=== PATIENT | female | born 1975 | race Caucasian/White ===

== ENCOUNTER 2023-02-15 09:01 | Day surgery (SDC) | payer BC ==
[2023-02-15] MEDS ORDERED: Decadron 4 MG INJ IV ONE (09:02)
[2023-02-15] MEDS ORDERED: XYLOCAINE 1% HCL 20 ML MDV IJ ONE (09:02)
[2023-02-15 09:40] LABS: HCG URINE TEST NEGATIVE (NEGATIVE)
[2023-02-15] MEDS ORDERED: Versed 2 MG/2 ML Injection ONE (10:11)
[2023-02-15] MEDS ORDERED: DIPRIVAN 200 MG/20 ML IV ONE (10:55)
[2023-02-15] MEDS ORDERED: Lactated Ringers 1,000 ML IV ONE (11:07)
--- NOTE | 2023-02-15 11:28 | XRAY ---
Indication: Right piriformis injection. Intraoperative fluoroscopy provided for 9 seconds. Single digital spot image submitted for interpretation demonstrates posterior needle tip projecting over the expected right piriformis. Small amount of contrast injected for needle tip placement. Correlate with intraoperative findings/report.
--- NOTE | 2023-02-15 13:36 | XRAY ---
9 seconds of fluoroscopy was used in surgery for a right piriformis injection.
== END 2023-02-15 11:23 | disposition home or self-care (01) ==
LOC: SDC-PAIN 09:01
PROVIDERS: ATTEND Psychiatry & Neurology Pain Medicine
DX: M79.18 Myalgia, other site (principal); Z79.899 Other long term (current) drug therapy
CPT/HCPCS: 20553; 72170; 77002; 81025; J1100; J2250; J2704; Q9966

== ENCOUNTER 2023-04-05 10:23 | Day surgery (SDC) | payer BC ==
[2023-04-05] MEDS ORDERED: LIDOCAINE HCL 1% 50 MG/5 ML VL PF IJ ONE (10:24)
[2023-04-05] MEDS ORDERED: Decadron 4 MG INJ IV ONE (10:24)
[2023-04-05 10:59] LABS: HCG URINE TEST NEGATIVE (NEGATIVE)
[2023-04-05] MEDS ORDERED: Versed 2 MG/2 ML Injection ONE ×2 (11:25→12:32)
[2023-04-05] MEDS ORDERED: DIPRIVAN 200 MG/20 ML IV ONE ×2 (11:36→12:32)
[2023-04-05] MEDS ORDERED: Lactated Ringers 1,000 ML IV ONE (13:19)
--- NOTE | 2023-04-05 14:37 | XRAY ---
14 seconds of fluoroscopy was used in surgery for a right piriformis injection.
--- NOTE | 2023-04-05 14:37 | XRAY ---
Indication: Right piriformis injection. Intraoperative fluoroscopy provided for 14 seconds. Single digital spot image submitted for interpretation demonstrates posterior needle tip projecting over the expected right piriformis. Small amount of contrast injected for needle tip placement. Correlate with intraoperative findings/report.
== END 2023-04-05 13:02 | disposition home or self-care (01) ==
LOC: SDC-PAIN 10:23
PROVIDERS: ATTEND Psychiatry & Neurology Pain Medicine
DX: M79.18 Myalgia, other site (principal); Z79.899 Other long term (current) drug therapy
CPT/HCPCS: 20553; 72170; 77002; 81025; J1100; J2001; J2250; J2704; Q9966

== ENCOUNTER 2023-09-27 09:46 | Day surgery (SDC) | payer BC ==
[2023-09-27] MEDS ORDERED: LIDOCAINE HCL 1% 50 MG/5 ML VL PF IJ ONE (09:47)
[2023-09-27] MEDS ORDERED: Sodium Chloride 0.9(Preservative Free) 10 ML IJ ONE (09:47)
[2023-09-27] MEDS ORDERED: Depo-Medrol 40 MG/ML IM ONE (09:47)
[2023-09-27 11:22] LABS: HCG URINE TEST NEGATIVE (NEGATIVE)
[2023-09-27] MEDS ORDERED: Versed 2 MG/2 ML Injection ONE (11:34)
[2023-09-27] MEDS ORDERED: DIPRIVAN 200 MG/20 ML IV ONE (12:12)
[2023-09-27] MEDS ORDERED: Lactated Ringers 1,000 ML IV ONE (13:41)
--- NOTE | 2023-09-27 13:53 | XRAY ---
Indication: Thoracic DARLYN. Intraoperative fluoroscopy provided for 17 seconds. 2 digital spot image submitted for interpretation demonstrates posterior needle tip projecting posterior to lower thoracic segments, probably [id number] interspace. Small amount of contrast injected for needle tip placement. Correlate with intraoperative findings/report.
--- NOTE | 2023-09-27 15:08 | XRAY ---
17 seconds of fluoroscopy was used in surgery for a thoracic DARLYN.
== END 2023-09-27 12:42 | disposition home or self-care (01) ==
LOC: SDC-PAIN 09:46
PROVIDERS: ATTEND Psychiatry & Neurology Pain Medicine
DX: B02.29 Other postherpetic nervous system involvement (principal)
CPT/HCPCS: 62321; 72072; 77003; 81025; J1030; J2001; J2250; J2704; Q9966

== ENCOUNTER 2024-01-31 08:33 | Day surgery (SDC) | payer BC ==
[2024-01-31] MEDS ORDERED: Depo-Medrol 40 MG/ML IM ONE (08:34)
[2024-01-31] MEDS ORDERED: BUPIVACAINE 0.5% VIAL IJ ONE (08:34)
[2024-01-31 08:53] LABS: HCG URINE TEST NEGATIVE (NEGATIVE)
[2024-01-31] MEDS ORDERED: DIPRIVAN 200 MG/20 ML IV ONE (10:22)
--- NOTE | 2024-01-31 11:41 | XRAY ---
Indication: Left knee injection. Intraoperative fluoroscopy provided for 12 seconds. Single digital spot image submitted for interpretation demonstrates needle tip projecting over left femur intercondylar notch. Small amount of contrast injected for needle tip placement. Correlate with intraoperative findings/report.
--- NOTE | 2024-01-31 11:41 | XRAY ---
Indication: Right knee injection. Intraoperative fluoroscopy provided for 6 seconds. Single digital spot image submitted for interpretation demonstrates needle tip projecting over right femur intercondylar notch. Small amount of contrast injected for needle tip placement. Correlate with intraoperative findings/report.
--- NOTE | 2024-01-31 13:37 | XRAY ---
12 seconds of fluoroscopy was used in surgery for a left intra-articular knee injection.
--- NOTE | 2024-01-31 13:38 | XRAY ---
6 seconds of fluoroscopy was used in surgery for a right intra-articular knee injection.
[2024-01-31] MEDS ORDERED: Lactated Ringers 1,000 ML IV ONE (14:59)
== END 2024-01-31 10:53 | disposition home or self-care (01) ==
LOC: SDC-PAIN 08:33
PROVIDERS: ATTEND Psychiatry & Neurology Pain Medicine
DX: M17.0 Bilateral primary osteoarthritis of knee (principal)
CPT/HCPCS: 20610; 73560; 77002; 81025; J2704; Q9966